=== PATIENT | male | born 1990 | race Caucasian/White ===

== ENCOUNTER 2024-11-05 22:37 | Emergency (ER) | payer OTHER ==
[~2024-11-05] VITALS: Ht 170.2 cm; Wt 186.4 kg
[2024-11-05 22:44] VITALS: BP 116/67; PULSE 97; RESP 17; TEMP 98.4; O2SAT 93
== END 2024-11-05 23:36 | disposition home or self-care (01) ==
LOC: EMS 22:40
DX: T16.1XXA Foreign body in right ear, initial encounter (principal); W44.9XXA Unspecified foreign body entering into or through a natural orifice, initial encounter; Y93.89 Activity, other specified; Y92.89 Other specified places as the place of occurrence of the external cause; Y99.8 Other external cause status
CPT/HCPCS: 99282; Z7502